=== PATIENT | male | born 1980 | race Caucasian/White ===

== ENCOUNTER 2024-04-13 02:44 | Emergency (ER) | payer OTHER, SELFPAY ==
[2024-04-13] VITALS (10 sets, daily range): BP systolic 115–152; BP diastolic 58–92; PULSE 57–69; RESP 14–20; TEMP 36.1; O2SAT 94–99; BMI 26.4
--- NOTE | 2024-04-13 02:59 | ED.GENADULT ---
HPI - General Adult General Chief complaint: Diabetic Problem Stated complaint: hypoglycemia Time Seen by Provider: 04/13/24 02:44 History of Present Illness HPI narrative: 43-year-old male with history of type 1 diabetes presents by air flight from [place] for hypoglycemia. EMS was dispatched to patient's location around midnight for seizure-like activity. On their arrival the patient's glucose was 23. He was given D50 and subsequent glucose 145. Subsequent checks dropped consistently and ambulance called for transport. Last glucose 69 prior to arrival. Patient currently awake, alert. States that his sugars have been poorly controlled over the last 24 hours due to being up nonstop traveling. Historically staying up late causes his sugars to be elevated. He says he is usually on 22u levemir with humalog 3-5u prn. This evening his glucose was consistently 240s and he gave himself multiple doses of 4u humalog. last humalog dose around 2200p. States he felt otherwise normal when he went to bed. Related Data Allergies Allergy/AdvReac Type Severity Reaction Status Date / Time No Known Drug Allergies Allergy Verified 04/13/24 02:58 Exam Initial Vital Signs Initial Vital Signs: Vital Signs Pulse Oximetry 98 04/13/24 02:49 Const: Awake, alert, no acute distress, nontoxic appearing Cardiac: regular rate, regular rhythm RESP: unlabored, clear bilaterally, no wheezing GI: Soft, nontender, nondistended, no rebound, no guarding Skin: Warm, Dry, intact, no rashes Neuro: AO x3, CN II-XII grossly intact, moves all extremities Course Orders Ordered: ED Orders 04/13/24 02:57 CBC Auto Diff [Complete Blood Count AUTO DIFF] Stat CMP [Comprehensive Metabolic Panel] Stat Respiratory Panel (Film Array) Stat TSH [Thyroid Stimulating Hormone] Stat 04/13/24 03:06 CXR [XR chest 1V] Stat CK [Creatine Kinase] Stat Lactate (Lactic Acid) Stat Vital Signs Vital signs: Vital Signs - 8 hr 04/13/24 02:49 04/13/24 02:50 04/13/24 02:50 Temperature Pulse Rate 61 Respiratory Rate Blood Pressure 152/92 H Pulse Oximetry 98 99 Oxygen Delivery Method 04/13/24 02:58 04/13/24 03:00 04/13/24 03:06 Temperature 97 F L Pulse Rate 57 L 59 L Respiratory Rate 16 14 Blood Pressure 152/92 H 146/86 H Pulse Oximetry 99 99 Oxygen Delivery Method Room Air Room Air 04/13/24 03:06 04/13/24 03:30 04/13/24 03:30 Temperature Pulse Rate 60 61 Respiratory Rate 20 17 Blood Pressure 118/67 Pulse Oximetry 98 97 Oxygen Delivery Method 04/13/24 04:00 04/13/24 04:00 04/13/24 04:30 Temperature Pulse Rate 67 60 Respiratory Rate 17 15 Blood Pressure 115/60 Pulse Oximetry 96 94 Oxygen Delivery Method Room Air 04/13/24 04:30 04/13/24 05:00 04/13/24 05:00 Temperature Pulse Rate 69 Respiratory Rate 16 Blood Pressure 119/62 117/58 L Pulse Oximetry 95 Oxygen Delivery Method Room Air 04/13/24 05:30 04/13/24 05:30 Temperature Pulse Rate 67 Respiratory Rate 19 Blood Pressure 147/80 H Pulse Oximetry 97 Oxygen Delivery Method Room Air Medical Decision Making Lab Data 04/13/24 03:00 04/13/24 03:00 Labs: Lab Results 04/13/24 04/13/24 Range/Units 03:00 03:06 WBC 16.2 H (4.5-11.0) X10^3/uL RBC 4.64 (4.5-5.9) X10^6/uL Hgb 13.3 L (13.5-17.5) g/dL Hct 40.0 L (41-53) % MCV 86.3 (80-100) fL MCH 28.6 (26-34) PG MCHC 33.2 (30-36) % RDW 14.0 (11.6-14.8) % Plt Count 329 (150-400) X10^3/uL Neut % (Auto) 81.5 H (50-75) % Lymph % (Auto) 10.9 L (25-40) % Ashe % (Auto) 6.7 (3-14) % Eos % (Auto) 0.6 L (2-4) % Baso % (Auto) 0.3 (0-2) % Neut # (Auto) 73719 H (6163-4607) /uL Lymph # (Auto) 1800 (7513-9412) /uL Ashe # (Auto) 1100 H (0-900) /uL Eos # (Auto) 100 (0-450) /uL Baso # (Auto) 100 (0-100) /uL Sodium 136 L (137-145) mmol/L Potassium 3.8 (3.4-5.1) mmol/L Chloride 103 (98-107) mmol/L Carbon Dioxide 30 (22-32) mmol/L BUN 25 H (9-20) mg/dL Creatinine 1.25 (0.66-1.25) mg/dL Estimated GFR > 60 (>60) mL/min BUN/Creatinine Ratio 20.0 (6-22) Glucose 89 (70-100) mg/dL Lactate 1.4 (0.7-2.1) mmol/L Calcium 9.0 (8.4-10.2) mg/dL Total Bilirubin 0.4 (0.2-1.3) mg/dL AST 42 (17-59) IU/L ALT 30 (<50) IU/L Alkaline Phosphatase 77 (38-126) U/L Total Creatine Kinase 163 (55-170) U/L Total Protein 7.1 (6.3-8.2) g/dL Albumin 4.0 (3.5-5.0) g/dL Globulin 3.1 (1.7-4.1) g/dL Albumin/Globulin Ratio 1.3 (1.0-2.8) TSH 3.37 (0.47-4.68) uIU/mL Chlamy pneumoniae PCR Not detected (Not Detect) Adenovirus (PCR) Not detected (Not Detect) B. pertussis DNA (PCR) Not detected (Not Detect) B.parapertussis DNA PCR Not detected (Not Detecte) Coronavirus OC43 (PCR) Not detected (Not Detect) Coronavirus HKU1 (PCR) Not detected (Not Detect) Coronavirus 229E (PCR) Not detected (Not Detect) SARS-CoV-2 (PCR) Not detected (Not Detecte) Coronavirus NL63 (PCR) Not detected (Not Detect) Human Metapneumovir PCR Not detected (Not Detect) Influenza Type A (PCR) Not detected (Not Detect) Influenza Type B (PCR) Not detected (Not Detect) M. pneumoniae (PCR) Not detected (Not Detect) Parainfluenza 1 (PCR) Not detected (Not Detect) Parainfluenza 2 (PCR) Not detected (Not Detect) Parainfluenza 3 (PCR) Not detected (Not Detect) Parainfluenza 4 (PCR) Not detected (Not Detect) RSV (PCR) Not detected (Not Detect) Entero/Rhino (PCR) Not detected (Not Detect) Point of Care Testing Glucose POC 177 Point of care testing: Point of Care Testing Glucose POC 177 MDM Narrative Medical decision making narrative: Hypoglycemia after preceding 24 hours of hyperglycemia. Last humalog given at 2200 per patient. States that other than feeling exhausted from his travel he feels normal. Last episode of hyperglycemia occurred several months ago, attributed to too much levemir. AOx3, neurologically intact. laboratory work is reviewed, no significant abnormalities identified. It was noted that fingerstick glucose had a nearly 30 point difference between the calibrated glucometer and the patient's continuous glucose monitor. Patient states that he has noted a difference sometimes of up to 70 or 80 points between a finger stick glucometer and his continuous glucose meter. Question if there is a discrepancy between patient's actual measured blood glucose and what his glucometer was reading, leading to an accidental over correction with Humalog. He has not required any additional correction of his glucose, and he has not had anything to eat in his time frame. patient advised to reach out to his screener and blender operator and to be less aggressive in trying to correct his glucose unless following a fingerstick measurement. Discharge Plan Departure Patient Disposition: Home Clinical Impression: Hypoglycemia Instructions: DI for Diabetes Type 1 -- Adult Activity Restrictions/Additional Instructions: discuss this incident with your screener and blender operator as soon as you are able. Continue your medications as previously prescribed. Your glucoses have been stable here today. If you are finding that the measurements do not respond as expected then try to measure a finger glucose as this seems to be more accurate here today. Stand Alone Forms: Patient Portal/API/Survey
--- NOTE | 2024-04-13 03:06 | DI.RAD.S_ITS ---
PROCEDURE: XR CHEST 1V INDICATIONS: seizure, hypoglycemia TECHNIQUE: One view of the chest was acquired. COMPARISON: None. FINDINGS: Surgical changes and devices: None. Lungs and pleura: An incomplete inspiratory result is noted, causing a crowded appearance to the lung markings. No focal infiltrates are seen. No pneumothorax or significant pleural effusions are seen. Mediastinum: Mediastinal contours appear normal. Heart size is normal. Bones and chest wall: No suspicious bony lesions. Overlying soft tissues appear unremarkable. IMPRESSION: Low lung volumes, without an acute abnormality seen by plain film. Note: No significant discrepancy from the preliminary report. Dictated by: Dominic Pineda M.D. on 04/13/2024 at 8:10 Approved by: Dominic iPneda M.D. on 04/13/2024 at 8:11
[2024-04-13 03:10] LABS: Add Manual Diff / Slide Review NO; Basophils Absolute Auto 100 /uL (0-100); Basophils Percent Auto 0.3 % (0-2); Eosinophils Absolute Auto 100 /uL (0-450); Eosinophils Percent Auto 0.6 % (2-4); Hemoglobin 13.3 g/dL (13.5-17.5); Lymphocytes Absolute Auto 1800 /uL (1100-4500); Lymphocytes Percent Auto 10.9 % (25-40); Mean Corpuscular HGB Conc 33.2 % (30-36); Mean Corpuscular Hemoglobin 28.6 PG (26-34); Mean Corpuscular Volume 86.3 fL (80-100); Monocytes Absolute Auto 1100 /uL (0-900); Monocytes Percent Auto 6.7 % (3-14); Neutrophils Absolute Auto 13200 /uL (1500-7000); Neutrophils Percent Auto 81.5 % (50-75); Platelet Count 329 X10^3/uL (150-400); Red Blood Cell Count 4.64 X10^6/uL (4.5-5.9); White Blood Cell Count 16.2 X10^3/uL (4.5-11.0)
[2024-04-13 03:23] LABS: Alanine Aminotransferase 30 IU/L (<50); Albumin Globulin Ratio 1.3 (1.0-2.8); Alkaline Phosphatase 77 U/L (38-126); Aspartate Aminotransferase 42 IU/L (17-59); Bilirubin Total 0.4 mg/dL (0.2-1.3); Blood Urea Nitrogen 25 mg/dL (9-20); Carbon Dioxide 30 mmol/L (22-32); Chloride 103 mmol/L (98-107); Estimated Glomerular Filt Rate > 60 mL/min (>60); Globulin 3.1 g/dL (1.7-4.1); Glucose 89 mg/dL (70-100); HEMOLYSIS < 15 (0-50); Potassium 3.8 mmol/L (3.4-5.1); Sodium 136 mmol/L (137-145); Total Protein 7.1 g/dL (6.3-8.2)
[2024-04-13 03:24] LABS: Creatine Kinase 163 U/L (55-170); Lactate (Lactic Acid) 1.4 mmol/L (0.7-2.1)
[2024-04-13 03:54] LABS: Thyroid Stimulating Hormone 3.37 uIU/mL (0.47-4.68)
[2024-04-13 04:00] LABS: Adenovirus Not Detected (Not Detect); B. parapertussis Not Detected (Not Detecte); Bordetella pertussis Not Detected (Not Detect); Chlamydophila pneumoniae Not Detected (Not Detect); Coronavirus 229E Not Detected (Not Detect); Coronavirus HKU1 Not Detected (Not Detect); Coronavirus NL 63 Not Detected (Not Detect); Coronavirus OC43 Not Detected (Not Detect); Human Metapneumovirus Not Detected (Not Detect); Human Rhinovirus/Enterovirus Not Detected (Not Detect); Influenza A Not Detected (Not Detect); Influenza B Not Detected (Not Detect); Mycoplasma pneumoniae Not Detected (Not Detect); Parainfluenza Virus 1 Not Detected (Not Detect); Parainfluenza Virus 2 Not Detected (Not Detect); Parainfluenza Virus 3 Not Detected (Not Detect); Parainfluenza Virus 4 Not Detected (Not Detect); Respiratory Syncytial Virus Not Detected (Not Detect); SARS- CoV-2 Not Detected (Not Detecte)
== END 2024-04-13 05:38 | disposition home or self-care (01) ==
PROVIDERS: Emergency Provider Emergency Medicine
DX: E10.649 Type 1 diabetes mellitus with hypoglycemia without coma (principal)
CPT/HCPCS: 36415; 71045; 80053; 82550; 82962; 83605; 84443; 85025; 87633; 99283; 99284